=== PATIENT | male | born 1995 | race African-American/Black ===

== ENCOUNTER 2021-03-19 11:02 | Emergency (ER) | payer SELFPAY ==
[2021-03-19 11:40] VITALS: BP 114/77; PULSE 89; TEMP 97.9; BMI 21.3
[2021-03-19] MEDS ORDERED: risperiDONE 2 MG TABLET PO ONE (11:50)
[2021-03-19] MEDS ORDERED: ESCITALOPRAM OXALATE 10 MG TABLET PO ONE (11:51)
[2021-03-19] MEDS ORDERED: risperiDONE 1 MG TABLET ONE (11:54)
[2021-03-19] MEDS ORDERED: ACETAMINOPHEN 500 MG TABLET (FP) PO ONE (11:56)
[2021-03-19] MEDS ORDERED: ACETAMINOPHEN 500 MG TABLET (FP) ONE (11:59)
== END 2021-03-19 12:50 | disposition home or self-care (01) ==
LOC: FER 11:02
DX: Z76.0 Encounter for issue of repeat prescription (principal)
CPT/HCPCS: 99283-25